=== PATIENT | male | born 1985 | race Two or more races ===

== ENCOUNTER 2023-10-24 08:07 | Outpatient (REF) | payer OTHER, SELFPAY ==
[2023-10-24 08:31] LABS: MANUAL DIFF FLAG NO
[2023-10-24 09:25] LABS: Basophils Percent Auto 0.7 % (0-2); Eosinophils Absolute Auto 0.1 X10*3/uL (0.0-0.4); Eosinophils Percent Auto 2.4 % (0-4); Hematocrit 45.8 % (42.0-52.0); Imm Gran Abs Auto 0.08 X10*3/uL (0.00-0.03); Imm Gran Pct Auto 1.5 % (0.0-0.4); Lymphocytes Absolute Auto 2.1 X10*3/uL (1.2-4.9); Mean Corpuscular HGB Conc 32.8 g/dl (31.0-36.0); Mean Corpuscular Hemoglobin 27.2 pg (27.0-33.0); Mean Platelet Volume 8.9 fL (9.4-12.4); Monocytes Absolute Auto 0.5 X10*3/uL (0.1-1.2); Monocytes Percent Auto 9.4 % (2-11); Neutrophils Absolute Auto 2.5 x10*3/uL (2.0-8.3); Platelet Count 301 X10*3/uL (160-400); Red Blood Count 5.52 X10*6/uL (4.60-5.80); Red Cell Distribution Width 13.3 % (11.0-16.0); White Blood Count 5.4 X10*3/uL (4.8-10.8)
[2023-10-24 10:01] LABS: Alanine Aminotransferase 49 U/L (0-40); Albumin Level 4.3 g/dL (3.5-5.0); Alkaline Phosphatase 71 U/L (39-117); Aspartate Amino Transferase 29 U/L (5-37); Bilirubin Total 0.2 mg/dL (0.0-1.0); Blood Urea Nitrogen 14 mg/dL (9-16); Calcium 9.6 mg/dL (8.4-10.2); Carbon Dioxide 26 mmol/L (22-29); Cholesterol 180 mg/dL (<200); Estimated Glomerular Filt Rate > 60; Glucose Random 93 mg/dL (60-115); HDL Cholesterol 34 mg/dL (>40); LDL Cholesterol Calculated 117 mg/dL (<100); Total Protein 7.8 g/dL (6.5-8.0); Triglycerides 146 mg/dL (<150)
[2023-10-24 10:28] LABS: Thyroid Stimulating Hormone 0.51 uIU/mL (0.32-4.0)
[2023-10-24 10:38] LABS: Anion Gap 14 (12-20); Chloride 107 mmol/L (96-108); Potassium 4.5 mmol/L (3.3-5.1); Sodium 141 mmol/L (135-145)
== END 2023-10-24 08:08 | disposition home or self-care (01) ==
LOC: HO.LAB 08:07
PROVIDERS: PCP Internal Medicine; Visit Provider Internal Medicine
DX: Z00.00 Encounter for general adult medical examination without abnormal findings (principal); Z13.31 Encounter for screening for depression; I10 Essential (primary) hypertension; R63.5 Abnormal weight gain
CPT/HCPCS: 36415; 80053; 80061; 84443; 85025

== ENCOUNTER 2024-04-29 09:29 | Emergency (ER) | payer OTHER, SELFPAY ==
--- NOTE | ~2024-04-29 | XR_ITS ---
EXAMINATION: XR FINGER, RIGHT CLINICAL INFORMATION: Fifth digit injury COMPARISON: None available. TECHNIQUE: 3 views of the right fifth digit. FINDINGS: There is soft tissue swelling seen around the PIP joint of the fifth digit. There are mild degenerative changes seen at the PIP joint. No acute fracture is seen. XR/XR finger RT min 2V IMPRESSION: Soft tissue swelling around the PIP joint of the fifth digit. No acute fracture is seen. Electronically signed by: Haroon Winslow MD 04/29/2024 12:35 PM EDT
[2024-04-29 09:43] VITALS: BP 145/77; PULSE 74; RESP 16; TEMP 36.5; O2SAT 95; BMI 30.8
--- NOTE | 2024-04-29 10:54 | ED_ITS ---
HPI - Extremity Problem General Chief complaint: Extremity Injury, Upper Stated complaint: r finger inj playing sports Time Seen by Provider: 04/29/24 10:47 Source: patient Mode of arrival: ambulatory Limitations: no limitations History of Present Illness ED Provider: JONATHAN HANSON PA-C HPI Narrative: 39 year old male with no significant pmhx presents to the ED today for evaluation of right 5th digit pain x9 days. Reports that while playing basketball last Friday, he jammed his right pinky finger into the basketball. Reports pain to the finger since with difficulty flexing. Denies numbness/tingling/weakness of the extremity, fever, chills. Related Data Allergies Allergy/AdvReac Type Severity Reaction Status Date / Time No Known Allergies Allergy Verified 04/29/24 09:47 Review of Systems Review of Systems: Constitutional: No fever, chills, fatigue, night sweats, weight changes ENT/Mouth: No ear pain, hearing loss, nasal congestion, sinus pain, rhinorrhea, sore throat Eyes: No eye pain, swelling, redness, vision changes, discharge Cardio: No chest pain, palpitations, [place], orthopnea, peripheral edema Pulm: No SOB, cough, sputum, wheezing, dyspnea, hemoptysis GI: No nausea, vomiting, hematemesis, abdominal pain, diarrhea, constipation, hematochezia, melena : No irregular bleeding, dysuria, frequency, urgency, hesitancy, hematuria, flank pain, urinary flow changes, urinary incontinence or retention MSK: No back pain, neck pain, joint pain, myalgias, +right fifth digit pain Skin: No lesions, rashes Neuro: No weakness, numbness, paresthesias, LOC, dizziness, headache Psych: No anxiety/panic, depression, SI/HI, AH/VH All other systems reviewed and are negative. [facility] Past Medical History Attestation statement: The following information was validated with the patient. Source: old records reviewed and nursing notes reviewed Physical Exam Vital Signs: Vital Signs: Last Vital Signs Temp 96.8 F 04/29/24 12:54 Pulse 58 04/29/24 12:54 Resp 14 04/29/24 12:54 BP 137/98 H 04/29/24 12:54 Pulse Ox 94 04/29/24 12:54 O2 Del Method Room Air 04/29/24 12:54 BMI result Body Mass Index 30.8 patient hypertensive, vitals otherwise wnl General: Well appearing, in no acute distress. Skin: Warm, dry, intact. No rashes or lesions. Head: Normocephalic, atraumatic. Cardiac: Chest wall symmetric. RRR Lungs: Normal respiratory effort without accessory muscle use Ext: + noted deformity to right 5th PIP with bruising noted to radial aspect. unable to flex PIP without manual assistance. strength intact. finger to thumb opposition intact. 2+ radial/ ulnar pulse intact. Neuro: AOx3. Normal speech. Ambulating with steady gait. Psych: Appropriate mood and affect. Responds appropriately to questions. Course Course Course Narrative: 1250 -- xr right 5th digit with noted swelling, no fracture. exam concerning for mallet deformity and tendon/ligament injury. i spoke with ortho TONI haque who evaluated patient at bedside. notes concern for lateral ligament pathology. recommends splinting finger in ED with close out patient follow up. patient agreeable. ortho referral provided. Patient has remained stable throughout ED visit today. Discussed worrisome signs and symptoms and when to return to the ED. All questions answered at this time. Patient is agreeable with disposition and stable for discharge. Medications Administered Discontinued Medications Generic Name Dose Route Start Last Admin Trade Name Freq PRN Reason Stop Dose Admin Acetaminophen 975 mg 04/29/24 11:55 04/29/24 11:59 Acetaminophen 325 Mg Tablet PO 04/29/24 11:56 975 mg ONCE ONE Administration Medical Decision Making Medical Decision Making [facility] Narrative: 39 year old male with no significant pmhx presents to the ED today for evaluation of right 5th digit pain x9 days. Vital signs stable. afebrile. He is nontoxic appearing and in NAD. On exam, noted deformity to right 5th PIP with bruising noted to radial aspect. unable to flex PIP without manual assistance. strength intact. finger to thumb opposition intact. 2+ radial/ ulnar pulse intact. Suspicion for flexor tendon injury, fracture, dislocation, subluxation of the PIP joint, arthritis. Unlikely neurovascular compromise, threat to limb, compartment syndrome. Pres entation not consistent with gout pseudogout. Plan for xray, tylenol for pain control, and re-evaluation. Given concern for flexor tendon injury, will reach out to ortho. Differential Diagnosis Differential Diagnoses: The differential diagnosis associated with the presentation includes As above Admission/Observation Not indicated Consult Healthcare Provider Management of the patient was discussed with: [employer] Police Officer (Otilio Santa) Independent Interpretation I performed an independent interpretation of an: Plain X-Ray Interpretation: xr w/ noted swelling around PIP joint, no fracture Radiology Impression Discussion of test interpretation with radiology: I have reviewed the radiologist's reading. Radiologist Impression: EXAMINATION: XR FINGER, RIGHT CLINICAL INFORMATION: Fifth digit injury COMPARISON: None available. TECHNIQUE: 3 views of the right fifth digit. FINDINGS: There is soft tissue swelling seen around the PIP joint of the fifth digit. There are mild degenerative changes seen at the PIP joint. No acute fracture is seen. XR/XR finger RT min 2V IMPRESSION: Soft tissue swelling around the PIP joint of the fifth digit. No acute fracture is seen. Electronically signed by: Haroon Winslow MD 04/29/2024 12:35 PM EDT RP External Record Review External record reviewed: Inpatient record, Office record, Outpatient record, Prior outpatient labs, Prior outpatient radiology, Primary care record and Outside ED record Prescription Management I considered prescription management with: Pain Medication Social Determinants Patient?s care significantly limited by Social Determinants of Health including: Other Social Determinant of Health Procedures Orthopedic Splinting/Casting Injury #1: Side: right Upper Extremity Injury Location: finger Upper Extremity Immobilizer: finger (other) Critical Care Time Critical Care Time Critical Care Time: No Discharge Plan Discharge Clinical Impression: Finger sprain, Mallet deformity of right little finger Patient Disposition: Home, Self-Care Instructions: Jammed Finger (ED), Finger Sprain (ED) Additional Instructions: You were seen in the ED today for right little finger pain. Xray does not demonstrate fracture. You were seen by the Ortho PA in ED today and were advised to follow up with [facility] out patient due to concern for ligament injury. Please wear the finger splint 03/02. You may change the tape as needed. Make sure to wear the splint until you follow up with the Orthopedic Team. Call them to make an appointment, they will not call you. Taken Tylenol and/or Ibuprofen as needed for pain. Rest and ice the finger as this can help with swelling and pain. Return with new or worsening symptoms. In the case of an emergency call 911. Referrals: [facility] [Provider Group] - 2 days (MALLET DEFORMITY, LATERAL LIGMENT INJURY TO 5TH DIGIT) Olivia Yu MD [Primary Care Provider] - Interventions: ED Discharge Assessment Last Done: 04/29/24 12:54 Discharge Date/Time: 04/29/24 12:56 Print Language: Gibraltarian
[2024-04-29] MEDS: Acetaminophen 325 MG TABLET 975 MG PO (11:59)
[2024-04-29 12:54] VITALS: BP 137/98; PULSE 58; RESP 14; TEMP 36; O2SAT 94
== END 2024-04-29 12:56 | disposition home or self-care (01) ==
PROVIDERS: Emergency Provider Emergency Medicine; PCP Internal Medicine
DX: S63.616A Unspecified sprain of right little finger, initial encounter (principal); M20.011 Mallet finger of right finger(s); Y93.67 Activity, basketball; Y92.310 Basketball court as the place of occurrence of the external cause; Y99.8 Other external cause status
CPT/HCPCS: 29130; 73140; 99283; 99284

== ENCOUNTER 2024-05-04 14:51 | Outpatient (AMB) | payer OTHER, SELFPAY ==
[2024-05-04 14:55] VITALS: BMI 30.8
--- NOTE | 2024-05-04 14:55 | MHC.OFFVIS ---
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 Patient denies numbness and tingling. Patient states his right small finger is locking at the DIP joint. Patient complains of swelling and pain to the touch. He is able to make a full fist, with pain. Patient denies taking any pain medications. Denies any surgeries or injuries to the right hand. Patient also brings up he had a similar injury on his left index finger, playing sports, about a year ago. 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 He was seen in the ED on 04/29/24 and placed in a finger splint He complains of swelling & pain to the touch of his small finger PIP joint. He says he is able to make a fist, with pain, but his finger locks in extension at the PIP joint sometimes. He denies any numbness or tingling. He reports having a mallet finger injury to his left small finger ~1 year ago. He says this is doing fine. 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 Review of Systems Const All systems reviewed & are unremarkable except as noted in HPI and below Physical Exam Vital Signs: BMI result Body Mass Index 30.8 Const General: cooperative, healthy appearing and no acute distress Orientation/consciousness: patient oriented x3 HEENT Head: Yes normocephalic and Yes atraumatic Eyes EOM: EOMs intact bilaterally Resp Effort & Inspection: normal respiratory effort and able to speak in complete sentences Cardio Jugular venous distension: no JVD Skin General skin exam: turgor normal Rashes: no rashes Neuro General: patient oriented x3 Extrem Other: Evaluation of Upper Extremity: The patient is alert, oriented, and in no acute distress Neuro: Median, Ulnar, Radial nerves motor and sensory intact and sensation is normal to the tips of all digits Vascular: Cap refill brisk ROM: Chronic mallet deformity of the small finger, with a new PIP joint hyperextension/volar plate injury resulting in a swan-neck deformity. Causing dorsal subluxation of the lateral bands Causing inability to actively flex at the PIP joint when lateral bands subluxating dorsally. When the PIP joint is brought from hyper extension to neutral extension, he is then able to actively flex his small finger to a fist. Chronic mallet deformity of the small finger, of ~40 degrees He can actively bring his small finger PIP joint to ~40 degrees hyperextension Intact FDP & FDS tendon function When I passively bring the PIP joint out of hyper extension, he can then actively flex at the PIP joint Skin: No lacerations or abrasions. General: No Ecchymosis. No Erythema or evidence of infection. Some swelling to the small finger, and tenderness to the small finger volar PIP joint Radiographs: 3 views of the right hand, with attention to the small finger, from 04/29/24 were reviewed by me today in clinic. They show o fractures or dislocations. He has ~40 degrees of hyperextension at the small finger PIP joint, and an ~40 degree small finger mallet deformity. He also has a deformity to the distal aspect of the small finger proximal phalanx, suggestive of an old fracture at some point. Psych Appearance: grossly normal Affect: normal affect Attitude: cooperative Assessment & Plan Assessment & Plan (1) Mallet deformity of right little finger: Code(s): M20.011 - Mallet finger of right finger(s) Category: Medical (2) Hyperextension injury of finger of right hand: Comment: PIP Code(s): S69.81XA - Other specified injuries of right wrist, hand and finger(s), initial encounter Category: Medical Plan Assessment & Plan: 1. 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 Right small finger PIP joint hyperextension injury, with rupture of the volar plate Of ~40 degrees Causing dorsal subluxation of the lateral bands Causing inability to actively flex at the PIP joint when lateral bands are subluxating dorsally I educated him about this condition I discussed operative and non-operative treatment options The patient would like to proceed with surgery He was The risks and benefits of operative treatment were discussed with the patient and the patient wishes to proceed with surgery. These risks include, but are not limited to risk of damage to blood vessels, nerves, tendons, infection, recurrence, incomplete relief of preoperative symptoms, persistent pain, possible need for further surgery and the risks associated with regional blocks and anesthesia. The plan is to take the patient to the operating room sometime on 05/06/24 for the following procedures: 1. Right small finger open mallet repair & pinning, under general 2. Right small finger PIP joint repair & pinning, under general All of the preoperative paperwork including the consent was reviewed today. All the patient's questions were answered. The patient understands that they will be contacted by our corporate scheduler soon to schedule this procedure She denies Diabetes, blood thinners, asthma, heart, lung, kidney issues Scribed for Solange Jo MD by Dick Mares, emergency medicine medical director, on 05/04/24 at 3:20 PM, EST. Coding Level of Care Code New Pt Level 4 (17915) Diagnoses Mallet deformity of right little finger M20.011 Hyperextension injury of finger of right hand S69.81XA
== END 2024-05-04 16:03 | disposition home or self-care (01) ==
PROVIDERS: PCP Internal Medicine; Visit Provider Orthopaedic Surgery
DX: M20.011 Mallet finger of right finger(s) (principal); S69.81XA Other specified injuries of right wrist, hand and finger(s), initial encounter
CPT/HCPCS: 99204

== ENCOUNTER → 2024-05-04 14:51 | Outpatient (BNVA) | payer OTHER, SELFPAY | PROVIDERS: PCP Internal Medicine; Visit Provider Orthopaedic Surgery ==

== ENCOUNTER 2024-05-06 07:19 | Day surgery (SDC) | payer OTHER, SELFPAY ==
--- NOTE | 2024-05-05 09:25 | HO.ANESPROP2 ---
Documented by User: Cha Atkins NP 05/05/24 09:26 HPI - Anesthesia Eval Consult details Narrative: 39yo M for Right Small Finger open Mallet repair and pinning, PIP joint Pinning PMFSH Active Problems Active Problems: All Active Problems Hyperextension injury of finger of right hand (Acute) Mallet deformity of right little finger (Acute) Past Medical History Medical History HTN (hypertension) No pertinent past medical history Asthma Surgical History Surgical History No pertinent past surgical history Social History Social History Are you a primary primary care physician to a significant other at home: No Do you presently have visiting nurse or other home services: No Patient Tobacco Use Status: Never used Tobacco Use of substances other than those prescribed or required for medical reasons: No Have you been hit, kicked, punched, or otherwise hurt by someone within the past year? 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 Meds Allergies Allergy/AdvReac Type Severity Reaction Status Date / Time No Known Allergies Allergy Verified 05/06/24 08:05 Home Medications ?Medication ?Instructions ?Recorded ?Confirmed ?Last Taken ?Type No Known Home Meds 05/04/24 05/06/24 Unknown History Assessment and Plan Assessment Anesthesia Assessment: Chart Reviewed Documented by User: Lydia Aguirre MD 05/06/24 09:36 PMFSH Past Medical History Medical History HTN (hypertension) No pertinent past medical history Asthma Family History Family history of problems with anesthesia: No Surgical History Surgical History No pertinent past surgical history History of Problems with Anesthesia: No Social History Social History Are you a primary primary care physician to a significant other at home: No Do you presently have visiting nurse or other home services: No Patient Tobacco Use Status: Never used Tobacco Use of substances other than those prescribed or required for medical reasons: No Have you been hit, kicked, punched, or otherwise hurt by someone within the past year? 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 Meds Allergies Allergy/AdvReac Type Severity Reaction Status Date / Time No Known Allergies Allergy Verified 05/06/24 08:05 Home Medications ?Medication ?Instructions ?Recorded ?Confirmed ?Last Taken ?Type No Known Home Meds 05/04/24 05/06/24 Unknown History Exam Airway Mallampati Class: II TM Dist: >3cm Heart: rrr Lungs: cta Assessment and Plan Assessment Anesthesia Assessment: Anesthesia Plan Discussed Final Anesthetic Review Family History of Problems with Anesthesia: No History of Problems with Anesthesia: No NPO: Yes ASA Class: II (htn not on meds, states trying to cut down excess etoh consumption.) Final Preanesthetic Review: No Changes in Pt Med Stat, Meds/Allgs Chart Reviewed and Anes Risks/Benef Reviewed Patient Risk: Intermediate Procedure Risk: Low Anesthetic Plan Anesthetic Plan: GA Disposition: Standard PACU
[2024-05-06] VITALS (7 sets, daily range): BP systolic 108–150; BP diastolic 64–94; PULSE 60–76; RESP 16; TEMP 36.5–36.6; O2SAT 94–98; BMI 33.2
[2024-05-06] MEDS: Lactated Ringers 1,000 ML 100 ML IVCONT (08:22)
--- NOTE | 2024-05-06 10:26 | MHC.SHP ---
Pre-Procedural Eval Section A - 24 Hr Update-Section A only Date of Service: 05/06/24 The patient is an INPATIENT: No Changes since office visit: No Cold of Flu in the past 2 weeks, No New Medical Problems, No Changes in Medication and No Patient answered all questions The patient has been examined within 24 hours of the surgical procedure. The History & Physical has been completed within 30 days and I have reviewed it.: Yes Section B - Complete if H&P > 30 days Chief Complaint: Mallet finger of right finger(s) Allergies: Allergies Allergy/AdvReac Type Severity Reaction Status Date / Time No Known Allergies Allergy Verified 05/06/24 08:05 Plan I have reviewed the history and physical and performed a pertinent physical examination on my patient. No changes have occurred unless specified. Time Spent With Patient Time: Total time managing care of this patient today ____ minutes.
--- NOTE | 2024-05-06 10:28 | P.OP_ITS ---
Operative Note Operative Note Date of Service: 05/06/24 Narrative: Operative Note Narrative: Preop diagnosis: 1. chronic right small finger mallet finger 2. Right small finger acute swan-neck deformity secondary to PIP volar plate disruption. Postop diagnosis: Same Procedure: 1. Right small finger open mallet finger tendon repair and pinning of D IP joint 2. Right small finger PIP joint reduction and placement of a dorsal blocking K- wire 3. Right ulnar nerve block Surgeon: Solange Jo MD Senior User Experience Architect: Faraz MUÑOZ Anesthesia: General Anesthesia Findings: Redundancy of extensor tendon at the D IP joint Implants: 0.045 K-wires x2 Tourniquet time: 28 minutes EBL: 5.0 ml Specimen: None Drains: None Complications: None Disposition: Brought to the recovery room in stable condition Plan: Follow-up in 10-14 days for wound check, suture removal and in a finger spica cast Anticipate K-wire removal from the PIP joint a 5 weeks, D IP joint at 6 weeks Indications: The patient is a 39 year old man with a right small finger chronic mallet deformity, and recent small finger PIP joint volar plate injury causing an acute swan-neck deformity. . The risks and benefits of operative treatment, including but not limited to risk of damage to blood vessels, nerves, tendons, infection, recurrence, persistent pain or numbness, incomplete resolution of preoperative symptoms, or need for further surgery were discussed with the patient and they wished to proceed with surgery. Procedure: Once consent was obtained patient was brought back to the operating suite and placed in the operating table in a supine position. . Perioperative antibiotics and anesthesia was administered by the anesthesia team. A tourniquet was applied to the proximal aspect of the right upper extremity and the limb was prepped and draped in a standard surgical fashion. The limb was elevated exsanguinated with Esmarch bandage and the tourniquet inflated to 250 mm of mercury for a total tourniquet time of 28 minutes. Our attention was 1st turned to the chronic mallet deformity. An S shaped incision was made over the dorsal aspect of his right small finger D IP joint. The incision was made through the skin to the subcutaneous tissues using a 15. Blade. I then dissected down to the level of the D IP joint extensor mechanism. I then use some 4-0 Vicryl to reef the extensor tendon, thereby shortening it. Once satisfied with our repair and reefing of the extensor mechanism I then placed a 0.045 K-wire retrograde through the tip of the distal phalanx advancing it across the D IP joint as it was held in extension. The K-wire was advanced to the base of the middle phalanx. K-wire placement was checked on fluoroscopic images. The pin was then bent cut short had pin caps applied. My attention was then turned to the PIP joint. This is an acute injury resulting in an acute swan-neck deformity. The PIP joint was then brought into a flexed position. I then placed a dorsal blocking K-wire retrograde into the head of the proximal phalanx. This was advanced down to the opposite cortex of the proximal phalanx and checked on multiple fluoroscopic images. This pin is holding the PIP joint in some flexion to allow for healing of the volar plate. Pin was then bent cut short had a pin cap applied. At this point the tourniquet was deflated and hemostasis obtained with a brief period of local pressure and bipolar electrocautery. The wound was copiously irrigated with normal saline. The skin edges were reapproximated with 5-0 nylon suture. An ulnar block A digital block was performed by infiltrating about the ulnar nerve at the wrist with some 1% lidocaine with epinephrine for postop pain control. A and a sterile dressing and ulnar gutter splint was applied. The patient appears to have tolerated the procedure well and with no complications. All digits were well vascularized conclusion of the case.
== END 2024-05-06 13:04 | disposition home or self-care (01) ==
PROVIDERS: PCP Internal Medicine; Visit Provider Orthopaedic Surgery
PROC: (CPT 26433; principal; 2024-05-06 10:10)
DX: M20.011 Mallet finger of right finger(s) (principal); S63.436A Traumatic rupture of volar plate of right little finger at metacarpophalangeal and interphalangeal joint, initial encounter; X58.XXXA Exposure to other specified factors, initial encounter; Y93.67 Activity, basketball; Y99.9 Unspecified external cause status; Y92.9 Unspecified place or not applicable; M20.031 Swan-neck deformity of right finger(s); I10 Essential (primary) hypertension; J45.909 Unspecified asthma, uncomplicated
CPT/HCPCS: 26433; 26548; J0131; J0690; J2003; J2004; J2704; J3010

== ENCOUNTER → 2024-05-06 07:19 | Outpatient (BNV) | payer OTHER, SELFPAY | PROVIDERS: PCP Internal Medicine; Visit Provider Orthopaedic Surgery | DX: M20.011 Mallet finger of right finger(s) (principal); M20.031 Swan-neck deformity of right finger(s) | CPT/HCPCS: 26433 ==

== ENCOUNTER 2024-05-18 10:24 | Outpatient (REF) | payer OTHER, SELFPAY ==
--- NOTE | ~2024-05-18 | XR_ITS ---
EXAMINATION: XR HAND RIGHT CLINICAL INFORMATION: Pain in right hand. COMPARISON: X-ray right finger 04/29/2024. TECHNIQUE: Four views of the right hand. FINDINGS: Orthopedic pins across the 5th proximal and distal interphalangeal joints without evidence of hardware complication. No acute fracture or dislocation. Mild joint space narrowing with small marginal osteophytes at the 5th proximal interphalangeal joint, slightly progressed. No concerning lytic or blastic osseous lesion. XR/XR hand RT min 3V IMPRESSION: 1. Orthopedic pins across the 5th proximal and distal interphalangeal joints without evidence of hardware complication. 2. 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 Electronically signed by: Romeo Quintana MD 07/23/2024 09:34 AM [place]
== END 2024-05-18 10:25 | disposition home or self-care (01) ==
LOC: HO.HOSX 10:24
PROVIDERS: Visit Provider Orthopaedic Surgery
DX: Z47.89 Encounter for other orthopedic aftercare (principal); S69.81XD Other specified injuries of right wrist, hand and finger(s), subsequent encounter
CPT/HCPCS: 73130; 99212

== ENCOUNTER 2024-05-18 14:19 | Outpatient (AMB) | payer OTHER, SELFPAY ==
--- NOTE | 2024-05-18 14:35 | MHC.OFFVIS ---
Intake Visit Reasons: PO RT SF open mallet 05/06/24 AR Intake Note: Jong is a 39 yo who presents today post operatively s/p right small finger open mallet repair, DOS 05/06/[address] Jo. Denies numbness or tingling. Denies finger locking. Patient reports no concerns today. Allergies No Known Allergies Allergy (Verified 05/18/24 14:56) HPI HPI PO RT SF open mallet 05/06/24 AR: Details: Jong is a 39 year old right hand dominant man who returns S/P right open mallet finger tendon repair and pinning of DIP joint, PIP joint reduction and placement of a dorsal blocking K-wire, DOS: 05/06/24, S/P Basketball injury, DOI: 04/21/24. He says he is doing well and denies any pain He denies any numbness or tingling. He says he is currently caring for his mother golf sales manager during the day, and attending night school classes. 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 Sutures removed and Steri-Strips applied Overall small finger appearance is good, with mild swelling Sensation is intact Cap refill is brisk Radiographs: 3 views of the right hand were taken and viewed by me today in clinic. They show a blocking K-wire in the PIP joint, distal aspect of the proximal phalanx, blocking extension, as well as a K-wire holding the DIP joint in extension, with satisfactory position of all K-wires Psych Appearance: grossly normal Affect: normal affect Attitude: cooperative Assessment & Plan Assessment & Plan (1) Mallet deformity of right little finger: Code(s): M20.011 - Mallet finger of right finger(s) Category: Medical (2) Hyperextension injury of finger of right hand: Comment: PIP Code(s): S69.81XA - Other specified injuries of right wrist, hand and finger(s), initial encounter Category: Medical Plan Assessment & Plan: 1. Right small finger mallet deformity, S/P open mallet finger tendon repair and pinning of DIP joint DOS: 05/06/24 2. Right small finger PIP joint hyperextension injury, with rupture of the volar plate S/P PIP joint reduction and placement of a dorsal blocking K-wire, DOS: 05/06/24. The patient appears to be doing well post-operatively I educated him about the post-operative course I explained the signs and symptoms of infection, if the patient develops any new or worsening erythema, drainage, pain, or warmth they should contact the clinic or attend the ED. He was placed in a short arm finger spica cast, for the next 2 weeks I discussed activity modifications, he is to lift nothing heavier than a cellphone for the next 4 weeks He should avoid any underwater activities at this time He will follow up in 2 weeks Anticipate K-wire removal from the PIP joint at that time and allow him to work on PIP joint flexion exercises. K-wire removal from the DIP joint should be no sooner than 4 weeks from today Scribed for Solange Jo MD by Dick Mares, medical pathology teacher, on 05/18/24 at 3:00 PM, EST. Orders: Orders XR hand RT min 3V 05/18/24 M79.641 - Pain in right hand Scribe Plan - Not visible on output: Scribed for Solange Jo MD by Dick Mares, medical pathology teacher, on [ ] at [ ], EST. Coding Level of Care Code Global (75926) Diagnoses Mallet deformity of right little finger M20.011 Hyperextension injury of finger of right hand S69.81XA
== END 2024-05-18 16:20 | disposition home or self-care (01) ==
LOC: HO.HOS 14:19
PROVIDERS: PCP Internal Medicine; Visit Provider Orthopaedic Surgery
DX: M20.011 Mallet finger of right finger(s) (principal); S69.81XA Other specified injuries of right wrist, hand and finger(s), initial encounter
CPT/HCPCS: 99024

== ENCOUNTER 2024-06-01 09:16 | Outpatient (REF) | payer OTHER, SELFPAY | END 2024-06-01 09:17 | disposition home or self-care (01) | LOC: HO.HOSX 09:16 | PROVIDERS: Visit Provider Orthopaedic Surgery | DX: M79.641 Pain in right hand (principal) | CPT/HCPCS: 73130 ==

== ENCOUNTER 2024-06-01 10:12 | Outpatient (AMB) | payer OTHER, SELFPAY ==
--- NOTE | 2024-06-01 10:25 | A.OFFVIS_ITS ---
Vital Signs 06/01/24 10:27 Height 5 ft 5 in Weight 199 lb BMI 33.1 Intake Visit Reasons: PO RT SF open mallet 05/06/24 AR Intake Note: Jong is a 39 yo who presents today post operatively s/p right small finger open mallet repair, DOS 05/06/[address] Jo. Patient reports pain on the ulnar aspect of the right small finger. Allergies No Known Allergies Allergy (Verified 06/01/24 10:27) HPI HPI PO RT SF open mallet 05/06/24 AR: Details: Jong is a 39 year old right hand dominant man who returns S/P right open mallet finger tendon repair and pinning of DIP joint, PIP joint reduction and placement of a dorsal blocking K-wire, DOS: 05/06/24, S/P Basketball injury, DOI: 04/21/24. He says he is doing well overall, though he complains of pain in the ulnar side of his small finger. He denies any numbness or tingling. He says he is currently caring for his mother multimedia project manager during the day, and attending night school classes. 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 K-wire across the PIP joint was removed today in clinic, which he tolerated well K-wire across the DIP joint remains intact Overall small finger appearance is good, with mild swelling Sensation is intact Cap refill is brisk Radiographs: 3 views of the right hand were taken and viewed by me today in clinic. They show a blocking K-wire in the PIP joint, distal aspect of the proximal phalanx, blocking extension, as well as a K-wire holding the DIP joint in extension, with satisfactory position of all K-wires Psych Appearance: grossly normal Affect: normal affect Attitude: cooperative Assessment & Plan Assessment & Plan (1) Mallet deformity of right little finger: Code(s): M20.011 - Mallet finger of right finger(s) Category: Medical (2) Hyperextension injury of finger of right hand: Comment: PIP Code(s): S69.81XA - Other specified injuries of right wrist, hand and finger(s), initial encounter Category: Medical Plan Assessment & Plan: 1. Right small finger mallet deformity, S/P open mallet finger tendon repair and pinning of DIP joint DOS: 05/06/24 2. Right small finger PIP joint hyperextension injury, with rupture of the volar plate S/P PIP joint reduction and placement of a dorsal blocking K-wire, DOS: 05/06/24. K-wire removed: 06/01/24 The patient appears to be doing well post-operatively I educated him about the post-operative course I explained the signs and symptoms of infection, if the patient develops any new or worsening erythema, drainage, pain, or warmth they should contact the clinic or attend the ED. He was fitted for a finger splint allowing for PIP motion and protecting the pin at the tip of the finger for the next 2 weeks. He can remove this to shower. He understands he may not submerge it in water and needs to keep the pin site c lean. I educated him about pin site care. I discussed activity modifications, he is to lift nothing heavier than a cellphone for the next 4 weeks He is to begin to work on gentle PIP ROM exercises at home, out of his splint. He should focus on making a closed fist He will follow up in 2 weeks, anticipate removal of remaining K-wire. Consider early hand therapy for a recovering swan-neck deformity. Scribed for Solange Jo MD by Dick Mares, medical technologist clinical, on 06/01/24 at 10:55 AM, EST. Orders: Orders XR hand RT min 3V Today M79.641 - Pain in right hand Scribe Plan - Not visible on output: Scribed for Solange Jo MD by Dick Mares, medical technologist clinical, on [ ] at [ ], EST. Coding Level of Care Code Global (45640) Diagnoses Mallet deformity of right little finger M20.011 Hyperextension injury of finger of right hand S69.81XA
[2024-06-01 10:27] VITALS: BMI 33.1
== END 2024-06-01 11:28 | disposition home or self-care (01) ==
PROVIDERS: PCP Internal Medicine; Visit Provider Orthopaedic Surgery
DX: M20.011 Mallet finger of right finger(s) (principal); S69.81XA Other specified injuries of right wrist, hand and finger(s), initial encounter
CPT/HCPCS: 99024

== ENCOUNTER 2024-06-15 13:41 | Outpatient (AMB) | payer OTHER, SELFPAY ==
[2024-06-15 13:50] VITALS: BMI 33.1
--- NOTE | 2024-06-15 13:50 | MHC.OFFVIS ---
Vital Signs 06/15/24 13:50 Height 5 ft 5 in Weight 199 lb BMI 33.1 Intake Visit Reasons: PO RT SF open mallet 05/06/24 AR-w/o xray Intake Note: Jong is a 39 yo who presents today post operatively for a ROM check and removal of K-wire s/p right small finger open mallet repair, DOS 05/06/[address] Jo. Patient reports he has been working on his ROM with mild pain and discomfort. Allergies No Known Allergies Allergy (Verified 06/15/24 14:07) HPI HPI PO RT SF open mallet 05/06/24 AR-w/o xray: Details: Jong is a 39 year old right hand dominant man who returns S/P right open mallet finger tendon repair and pinning of DIP joint, PIP joint reduction and placement of a dorsal blocking K-wire, DOS: 05/06/24, S/P Basketball injury, DOI: 04/21/24. He says he is doing well overall, though he says he is still having difficulty with his finger ROM. He has been trying to work on home exercises. He denies any numbness or tingling. He says he is currently caring for his mother gas usage meter clerk during the day, and attending night school classes. 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 K-wire across the DIP joint removed today, which he tolerated well Overall small finger appearance is good Initially today he had significant stiffness in his small finger PIP joint, and it does not appear that he has been working much on range of motion for this joint. We worked on ROM exercises for >15 minutes in clinic Before leaving clinic, he could passively bring his small fingertip to his palm and actively ~1-2cm from his palm No hyperextension of the small finger PIP joint when extending his fingers. His finger actively extends only to neutral which is a significant improvement. After removal of the K-wire his D IP joint maintained full extension with no recurrence of his mallet deformity. Sensation is intact Cap refill is brisk Psych Appearance: grossly normal Affect: normal affect Attitude: cooperative Assessment & Plan Assessment & Plan (1) Mallet deformity of right little finger: Code(s): M20.011 - Mallet finger of right finger(s) Category: Medical (2) Hyperextension injury of finger of right hand: Comment: PIP Code(s): S69.81XA - Other specified injuries of right wrist, hand and finger(s), initial encounter Category: Medical Plan Assessment & Plan: 1. Right small finger mallet deformity, S/P open mallet finger tendon repair and pinning of DIP joint DOS: 05/06/24 K-wire removed: 06/15/24 2. Right small finger PIP joint hyperextension injury, with rupture of the volar plate S/P PIP joint reduction and placement of a dorsal blocking K-wire, DOS: 05/06/24. K-wire removed: 06/01/24 Thus far, he appears to have very good resolution of his boutonniere deformity. The patient appears to be doing well post-operatively I educated him about the post-operative course I explained the signs and symptoms of infection, if the patient develops any new or worsening erythema, drainage, pain, or warmth they should contact the clinic or attend the ED. He will continue to wear his finger splint, allowing for PIP motion and protecting the pin at the tip of the finger, for 8 hours daily for the next 6 weeks. He should make sure to wear his splint with any physical activities such as attending the gym or playing sports. I discussed activity modifications, he is to lift nothing heavier than a cellphone for the next 2 weeks I again explained the importance of working on PIP joint ROM exercises at home, out of his splint. If he has difficulty he can contact the clinic for a referral to OT hand therapy He will follow up in 6 weeks for a ROM check. At that time we can assure that he works on active D IP flexion holding the PIP in extension. We may want to get him in with OT hand therapy at that time. Scribed for Solange Jo MD by Dick Mares hospitalist medical director, on 06/15/24 at 2:10 PM, EST. Scribe Plan - Not visible on output: Scribed for Solange Jo MD by jovany Rowan scribe, on [ ] at [ ], EST. Coding Level of Care Code Global (08178) Diagnoses Mallet deformity of right little finger M20.011 Hyperextension injury of finger of right hand S69.81XA
== END 2024-06-15 14:31 | disposition home or self-care (01) ==
PROVIDERS: PCP Internal Medicine; Visit Provider Orthopaedic Surgery
DX: M20.011 Mallet finger of right finger(s) (principal); S69.81XA Other specified injuries of right wrist, hand and finger(s), initial encounter
CPT/HCPCS: 99024

== ENCOUNTER → 2024-06-15 13:41 | Outpatient (BNVA) | payer OTHER, SELFPAY | PROVIDERS: PCP Internal Medicine; Visit Provider Orthopaedic Surgery | DX: S69.81XD Other specified injuries of right wrist, hand and finger(s), subsequent encounter (principal); Z87.39 Personal history of other diseases of the musculoskeletal system and connective tissue; Z98.890 Other specified postprocedural states | CPT/HCPCS: 99212 ==

== ENCOUNTER 2024-08-31 09:16 | Outpatient (AMB) | payer OTHER, SELFPAY ==
--- NOTE | 2024-08-31 09:25 | MHC.OFFVIS ---
Vital Signs 08/31/24 09:27 Height 5 ft 5 in Weight 199 lb BMI 33.1 Intake Visit Reasons: OV RT SF open mallet 05/06/24 AR ROM check Intake Note: Jong 39 yr old right hand dominant male presents today for his follow up visit for his S/P right small finger open mallet finger from 05/06/[address] Jo, ROM check. At his last visit he was instructed to continue to wear his finger splint, allowing for PIP motion and protecting the pin at the tip of the finger, for 8 hours daily for the next 6 weeks. He was advise to make sure to wear his splint with any physical activities such as attending the gym or playing sports. Currently states his finger pain is alot better. He has continue to wear his splint as instructed. States he refuse O.T when they called to schedule due to him seeing improvements on his own. Denies numbness or tingling. Allergies No Known Allergies Allergy (Verified 08/31/24 09:29) HPI HPI OV RT SF open mallet 05/06/24 AR ROM check: Details: Jong is a 39 year old right hand dominant man who returns S/P right open mallet finger tendon repair and pinning of DIP joint, PIP joint reduction and placement of a dorsal blocking K-wire, DOS: 05/06/24, S/P Basketball injury, DOI: 04/21/24. He says he is doing well overall. His pain has improved and he has noticed improvements in his finger. He has been working on home exercises. He says he refused OT as he was seeing improvements on his own. He denies any numbness or tingling. 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 Review of Systems Const All systems reviewed & are unremarkable except as noted in HPI and below Physical Exam Vital Signs: BMI result Body Mass Index 33.1 Const General: no acute distress and alert Orientation/consciousness: patient oriented x3 Neuro General: patient oriented x3 Extrem Other: Evaluation of Right Upper Extremity: The patient is alert, oriented, and in no acute distress Neuro: Median, Ulnar, Radial nerves motor and sensory intact and sensation is normal to the tips of all digits Vascular: Cap refill brisk ROM: He can make a fist and extend all his digits Small finger PIP joint flexes to ~80-85 degrees, but can be brought to 90 degrees with stretching exercises in clinic today He can fully extend his small finger, with ~1-2 degrees of hyperextension at the PIP joint. Residual mallet deformity of ~10-15 degrees Psych Appearance: grossly normal Affect: normal affect Attitude: cooperative Assessment & Plan Assessment & Plan (1) Mallet deformity of right little finger: Code(s): M20.011 - Mallet finger of right finger(s) Category: Medical (2) Hyperextension injury of finger of right hand: Comment: PIP Code(s): S69.81XA - Other specified injuries of right wrist, hand and finger(s), initial encounter Category: Medical Plan Assessment & Plan: 1. Right small finger mallet deformity, S/P open mallet finger tendon repair and pinning of DIP joint DOS: 05/06/24 K-wire removed: 06/15/24 2. Right small finger PIP joint hyperextension injury, with rupture of the volar plate S/P PIP joint reduction and placement of a dorsal blocking K-wire, DOS: 05/06/24. K-wire removed: 06/01/24 He has had very good resolution of his swan-neck deformity. The patient appears to be doing well post-operatively He is happy with the results of his surgery He will discontinue his finger splint at this time I discussed activity modifications, he is able to begin using his hand for more normal daily activities I again explained the importance of working on PIP flexion exercises at home, he will continue to work on ROM exercises He can follow up prn Scribed for Solange Jo MD by Dick Mares, biomedical equipment technician, on 2/18/25 at 9:55 AM, EST. Orders: Orders OT Evaluation and Treatment 07/28/24 M20.011 - Mallet finger of right finger(s), S69.81XA - Other specified injuries of right wrist, hand and finger(s), initial encounter Coding Level of Care Code Est Pt Level 3 (08356) Diagnoses Mallet deformity of right little finger M20.011 Hyperextension injury of finger of right hand S69.81XA
[2024-08-31 09:27] VITALS: BMI 33.1
--- OUTSIDE RECORDS SUMMARY | 2024-08-31 09:56 | XMS_ITS | Clinical Summary ---
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 Name Role Phone Unavailable Primary Care Provider Unavailabl e Encounters Date Type Department Care Team Description 07/09/2024 Telephone [facility] [address] [place] [address] Cristofer Veronica MD Appointment Request from Last 3 Months Social History Tobacco Use Types Packs/Day Years Used Date Smoking Tobacco: Never Assessed Sex and Gender Information Value Date Recorded Sex Assigned at Male 05/13/2022 10:17 AM EDT Legal Sex Male 10:17 AM EDT Gender Identity Not on file Sexual Orientation Not on file Plan of Treatment Health Maintenance Due Date Last Done Comments Depression Screening 1985 HIV Screening 1985 Lipid Panel 1985 SDOH Screening 1985 Alcohol/Substance Use Screening 1997 Tobacco Screening 1997 Family Planning (PISQ) 01/19/2000 Hepatitis C Screening 2003 Pneumococcal Vaccine: Pediatrics (0 to 5 Years) and At-Risk Patients (6 to 49) Years) (1 of 2 - PCV) 01/19/2004 Hepatitis B Vaccines (2 of 3 - 19+ 3-dose series) 07/31/2009 07/03/2009 DTaP/Tdap/Td Vaccines (3 - T d or Tdap) 06/13/2019 06/13/2009, 11/13/1998 COVID-19 Vaccine (2023-2 5 season) 2024 08/13/2021, 08/14/2020, 07/17/2020 Influenza Vaccine (#1) 2024 3, 03/09/2012 Zoster Vaccines (1 of 2) 2035 RSV Patients and Patients Aged 60 years or older (1 - 1-dose 75+ series) 01/19/2060 HIB Vaccines Aged Out No longer eligi ble based on patient's age to complete this topic HPV Vaccines Aged Out No longer eligi ble based on patient's age to complete this topic Hepatitis A Vaccines Aged Out No long er eligible based on patient's age to complete this topic IPV Vaccines Aged Out No longer eligi ble based on patient's age to complete this topic Meningococcal Vaccine Aged Out No al sharyn eligible based on patient's age to complete this topic RSV under 20 months Aged Out No longe r eligible based on patient's age to complete this topic Rotavirus Vaccines Aged Out No longer eligible based on patient's age to complete this topic Insurance [facility]
== END 2024-08-31 09:59 | disposition home or self-care (01) ==
PROVIDERS: PCP Internal Medicine; Visit Provider Orthopaedic Surgery
DX: M20.011 Mallet finger of right finger(s) (principal); S69.81XA Other specified injuries of right wrist, hand and finger(s), initial encounter
CPT/HCPCS: 99213

== ENCOUNTER → 2024-08-31 09:16 | Outpatient (BNVA) | payer OTHER, SELFPAY | PROVIDERS: PCP Internal Medicine; Visit Provider Orthopaedic Surgery | DX: S69.81XD Other specified injuries of right wrist, hand and finger(s), subsequent encounter (principal); X58.XXXD Exposure to other specified factors, subsequent encounter; Z98.890 Other specified postprocedural states | CPT/HCPCS: 99212 ==

== ENCOUNTER 2025-02-21 13:08 | Outpatient (REF) | payer OTHER, SELFPAY ==
--- OUTSIDE RECORDS SUMMARY | 2025-02-21 13:20 | XMS_ITS | Clinical Summary ---
Author Organization [employer] Address [address] [facility] [address] [place] [address] Care Team Providers Care Hide Inspector Name Role Phone Pascual Villarreal MD Primary Care Provider [phone] Allergies No known active allergies Medications amLODIPine (Norvasc) 2.5 MG tabletIndication s:Hypertension, unspecified type Take 1 tablet (2.5 mg) by mouth Once per day. 30 tablet 11 12/15/2024 Active Blood Pressure kitIndications:H ypertension, unspecified type Use once a day 1 kit 12/15/2024 Active Active Problems Problem Noted Date Diagnosed Date Alcoholism 03/09/2012 Encounters Date Type Department Care Team Description 02/17/2025 Telephone [facility] [address] [place], [place] [phone] Matthew Hernandez [place] april recalls 12/15/2024 9:00 AM EDT Office Visit [facility] [address] [place], [place] [phone] Pascual Villarreal MD Hypertension, unspecified type (Primary Dx); Screening for diabetes mellitus; Screening for cholesterol level; Screen for STD (sexually transmitted disease); Habitual alcohol use 12/15/2024 Travel 12/14/2024 Telephone [facility] [address] [place], [place] [phone] Gayla Landry [place] 12/08/2024 Patient Outreach [facility] [address] [place], [place] [phone] Pascual Villarreal MD Pre-visit Planning (SDOH negative, Tobacco screening negative. ) from Last 3 Months Immunizations Immunization Administration Dates Next Due Hep B, adult 07/03/2009 Influenza, IIV3, injectable 04/13/2013 Influenza, Split (incl. purified surface antigen ) 03/09/2012 TD (adult), 2 Lf tetanus tox oid, preservative free, adsorbed 11/13/1998 Tdap 12/15/2024,06/13/2009 Family History Medical History Relation Name Comments Alcohol abuse Brother 1 Hypertension Brother 2 Cirrhosis Father Diabetes Mother Hypertension Mother Relation Name Status Comments Brother 1 Brother 2 Alive Father Mother Social History Tobacco Use Types Packs/Day Years Used Date Smoking Tobacco: Never Smokeless Tobacco: Never Tobacco Cessation:Counseling Given: Not Answered Alcohol Use Standard Drinks/Week Comments Yes 0 (1 standard drink = 0.6 oz pure alcohol) 3-4 times a week 3-4 beers at a time Depression Answer Date Recorded Patient Health Questionnaire-9 Score 4 12/15/2024 Patient Health Questionnaire-9 Score 4 12/15/2024 Last PHQ-9: Questionnaire Data Not on file 0 12/15/2024 Housing Stability Answer Date Recorded What is your housing situation today? I have ebony beth 12/08/[address] you li ve. Do you have problems with any of the following? None of the above 12/08/2024 Food Insecurity Answer Date Recorded Within the past 12 months, y ou worried that your food would run out before you got money to buy more: Never True 12/08/2024 Within the past 12 months,th e food you bought just didn't last and you didn't have enough money to get more: Never True Transportation Answer Date Recorded In the past 12 months, has l ack of transportation kept you from medical appts, meetings, work or from getting things needed for daily living? No 12/08/2024 Utilities Answer Date Recorded In the past 12 months, has t he electric, gas, oil or water company threatened to shut off services in your home? 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 Not on file Not on mary e Last Filed Vital Signs Vital Sign Reading Time Taken Comments Blood Pressure 148/102 12/15/2024 9:12 AM EDT Pulse 67 12/15/2024 9:11 AM EDT Temperature 36.3 C (97.3 F) 12/15/2024 9:11 AM EDT Respiratory Rate 18 12/15/2024 9:11 AM EDT Oxygen Saturation 98% 12/15/2024 9:11 AM EDT Inhaled Oxygen Concentration - - Weight 90.5 kg (199 lb 9.6 oz) 12/15/2024 9:11 A M EDT Height 165.1 cm (5' 5 ) 12/15/2024 9:11 AM EDT Body Mass Index 33.22 12/15/2024 9:11 AM EDT Plan of Treatment Upcoming Encounters Date Type Department Care Team (Late st Contact Info) Description 04/26/2025 3:30 PM EDT Office Visit [facility] [address] [place] [address] Name, MD Pascual [address] [place] [phone] Health Maintenance Due Date Last Done Comments HIV Screening 1985 Lipid Panel 1985 Alcohol/Substance Use Screening 1997 Family Planning (PISQ) 01/19/2000 HPV Vaccines (1 - Male 3-dos e series) 01/19/2000 Hepatitis C Screening 2003 Pneumococcal Vaccine: Pediatrics (0 to 5 Years) and At-Risk Patients (6 to 49) Years (1 of 2 - PCV) 01/19/2004 Hepatitis B Vaccines (2 of 3 - 19+ 3-dose series) 07/31/2009 07/03/2009 COVID-19 Vaccine (4 - 2023-2 5 season) 2024 08/13/2021, 08/14/2020, 07/17/2020 Influenza Vaccine (#1) 2025 3, 03/09/2012 SDOH Screening 12/08/2025 12/08/2024 Depression Screening 12/15/2025 12/15/2024, 12/15/2024 Disability Screening 12/15/2025 12/15/2024 Tobacco Screening 12/15/2025 12/15/2024 DTaP/Tdap/Td Vaccines (4 - T d or Tdap) 12/15/2034 12/15/2024, 06/13/2009, 11/13/1998 Zoster Vaccines (1 of 2) 2035 RSV [...] patient's age to complete this topic Meningococcal B Vaccine Aged Out No l onger eligible based on patient's age to complete this topic Meningococcal Vaccine Aged Out No al sharyn eligible based on patient's age to complete this topic RSV under 20 months Aged Out No longe r eligible based on patient's age to complete this topic Rotavirus Vaccines Aged Out No longer eligible based on patient's age to complete this topic Insurance [facility] Care Teams Hide Inspector Relationship Specialty Start Date End Date Name, MD Pascual [address] [place] [id number] PCP - General Internal Medicine 12/15/24
[2025-02-21 16:11] LABS: MANUAL DIFF FLAG NO
[2025-02-21 16:17] LABS: Hematocrit 44.8 % (42.0-52.0); Hemoglobin 14.6 g/dl (14.0-18.0); Imm Gran Abs Auto 0.02 X10*3/uL (0.00-0.03); Imm Gran Pct Auto 0.4 % (0.0-0.4); Lymphocytes Absolute Auto 1.8 X10*3/uL (1.2-4.9); Mean Corpuscular HGB Conc 32.6 g/dl (31.0-36.0); Mean Corpuscular Hemoglobin 27.3 pg (27.0-33.0); Mean Corpuscular Volume 83.7 fL (80.0-98.0); NRBC Abs Auto 0.000 X10*3/uL (0.0-0.012); NRBC Pct Auto 0.0 /100WBC (0.0-0.2); Platelet Count 235 X10*3/uL (160-400); Red Blood Count 5.35 X10*6/uL (4.60-5.80); White Blood Count 5.0 X10*3/uL (4.8-10.8)
[2025-02-21 16:29] LABS: Alanine Aminotransferase 46 U/L (0-40); Albumin Level 4.8 g/dL (3.5-5.0); Alkaline Phosphatase 69 U/L (39-117); Anion Gap 13 (12-20); Aspartate Amino Transferase 48 U/L (5-37); Blood Urea Nitrogen 13 mg/dL (9-16); Calcium 9.5 mg/dL (8.4-10.2); Carbon Dioxide 24 mmol/L (22-29); Chloride 107 mmol/L (96-108); Cholesterol 203 mg/dL (<200); Estimated Glomerular Filt Rate > 60; HDL Cholesterol 47 mg/dL (>40); Potassium 4.0 mmol/L (3.3-5.1); Sodium 140 mmol/L (135-145); Total Protein 7.6 g/dL (6.5-8.0); Triglycerides 158 mg/dL (<150)
[2025-02-22 08:51] LABS: HBS Num1 2.71 mIU/mL (0-7.99); HBsAGNum1 0.51 S/CO (0.00-0.99); HIV Num 1 0.07 S/CO (0.00-0.99); Hepatitis B Surface Antigen Negative (Negative); ~HepC Num1 0.09 S/CO (0.00-0.79); ~Hepatitis B Surface Antibody NONREACTIVE (Nonreactive); ~Hepatitis C Antibody Nonreactive (Nonreactive)
[2025-02-22 10:06] LABS: CT PCR Urine NOT DETECTED (Not Detect.); NG PCR Urine NOT DETECTED (Not Detect.)
== END 2025-02-21 13:09 | disposition home or self-care (01) ==
LOC: HO.HHCL 13:08
PROVIDERS: PCP Internal Medicine Geriatric Medicine; Visit Provider Internal Medicine Geriatric Medicine
DX: Z11.3 Encounter for screening for infections with a predominantly sexual mode of transmission (principal); Z11.4 Encounter for screening for human immunodeficiency virus [HIV]; Z11.8 Encounter for screening for other infectious and parasitic diseases; Z13.220 Encounter for screening for lipoid disorders; Z11.59 Encounter for screening for other viral diseases; Z13.1 Encounter for screening for diabetes mellitus; I10 Essential (primary) hypertension
CPT/HCPCS: 36415; 80053; 80061; 85025; 86592; 86706; 86803; 87340; 87389; 87491; 87591